=== PATIENT | female | born 1945 | race Caucasian/White ===

== ENCOUNTER 2017-03-22 12:42 | Emergency (ER) | payer MEDICARE ==
--- NOTE | 2017-03-22 14:36 | CT ---
CT OF BRAIN PERFORMED WITHOUT CONTRAST ENHANCEMENT: HISTORY: Head injury. FINDINGS: The ventricular and cisternal system shows age-appropriate change. There are no signs of intracereb ral hemorrhage or extraaxial fluid collections. The mastoid air cells and visualized sinuses are cl ear. IMPRESSION: No acute intracranial abnormalities. POS: [facility]
--- NOTE | 2017-03-22 15:18 | CT ---
CERVICAL SPINE CT WITHOUT IV CONTRAST: HISTORY: A 71-year-old female with neck pain following a fall. FINDINGS: Disk osteophytosis changes are noted at C5-C6 and at C6-C7. There is mild lateral recess and forami nal stenosis, particular at C6-C7 and less so on the right side at C5-C6. No evidence for acute fra cture or facet dislocation. IMPRESSION: Cervical spondylosis with some mild to moderate canal, lateral recess, and foraminal stenosis at C5- C6 and C6-C7, worse at C6-C7. POS: [facility]
--- NOTE | 2017-03-22 15:19 | RAD ---
RIGHT SHOULDER THREE VIEWS: HISTORY: Fall. Right shoulder pain. FINDINGS/IMPRESSION: No acute fracture or dislocation is identified. POS: [facility]
--- NOTE | 2017-03-22 15:21 | RAD ---
PORTABLE CHEST ONE VIEW 03/22/2017 at 1:52 p.m.: HISTORY: Injury. Fall. Shoulder pain. Neck pain. Back pain. FINDINGS: Comparison is made with the exam of 07/08/2012. The heart size is normal. The lungs are expanded without focal areas of consolidation, pneumothorax , or pleural effusions. IMPRESSION: No radiographic evidence of acute cardiopulmonary process. POS: [facility]
--- NOTE | 2017-03-22 15:25 | RAD ---
AP PELVIS: HISTORY: Fall. Right hip pain. FINDINGS/IMPRESSION: No definite fracture or dislocation is identified. POS: [facility]
--- NOTE | 2017-03-22 15:27 | RAD ---
RIGHT HIP TWO VIEWS: HISTORY: Fall, right hip pain. FINDINGS/IMPRESSION: No fracture or dislocation is seen. If there is high suspicion for a fracture, further evaluation with CT scan or MRI should be performe d. POS: [facility]
[2017-03-22] MEDS ORDERED: Ketorolac Tromethamine 60 MG/2 ML VIAL ONE (15:39)
== END 2017-03-22 16:13 | disposition home or self-care (01) ==
LOC: ERS 12:42
DX: S70.01XA Contusion of right hip, initial encounter (principal); S40.011A Contusion of right shoulder, initial encounter; E78.5 Hyperlipidemia, unspecified; W01.190A Fall on same level from slipping, tripping and stumbling with subsequent striking against furniture, initial encounter; Y92.512 Supermarket, store or market as the place of occurrence of the external cause
CPT/HCPCS: 70450; 71010; 72125; 72170; 96372; J1885

== ENCOUNTER 2018-09-05 10:15 | Outpatient (CLI) | payer MEDICARE ==
--- NOTE | 2018-09-05 10:51 | MMO ---
Bilateral MAMMO Bilat Screen [facility]. CLINICAL HISTORY: Patient is 73 years old and is seen for screening. The patient has no family history of breast cancer. The patient has no personal history of cancer. The patient has a history of left Excisional Biopsy in 1995 - Benign and left Excisional Biopsy in August 2001 - Benign. VIEWS: The views performed were: bilateral craniocaudal with tomosynthesis and bilateral mediolateral oblique with tomosynthesis. FILMS COMPARED: The present examination has been compared to prior imaging studies performed at [facility] on 07/28/2000, 08/09/2001, 08/16/2002, 09/09/2003, 09/10/2004, 09/23/2005, 12/20/2006, 02/08/2008, 07/08/2011 and 03/28/2014. MAMMOGRAM FINDINGS: There are scattered fibroglandular densities. There are benign appearing calcifications seen in both breasts. There are also vascular calcifications. There are no suspicious masses, suspicious calcifications, or new areas of architectural distortion. IMPRESSION: THERE IS NO MAMMOGRAPHIC EVIDENCE OF MALIGNANCY. A ROUTINE FOLLOW-UP MAMMOGRAM IN 1 YEAR IS RECOMMENDED. THE RESULTS OF THIS EXAM WERE SENT TO THE PATIENT. ACR BI-RADS Category 2 - Benign finding MAMMOGRAPHY NOTE: 1. A negative mammogram report should not delay a biopsy if a dominant of clinically suspicious mass is present. 2. Approximately 10% to 15% of breast cancers are not detected by mammography. 3. Adenosis and dense breasts may obscure an underlying neoplasm.
== END 2018-09-05 10:16 | disposition home or self-care (01) ==
LOC: BICMAMMO 10:15
PROVIDERS: ATTEND Family Medicine
DX: Z12.31 Encounter for screening mammogram for malignant neoplasm of breast (principal)
CPT/HCPCS: 77063; 77067

== ENCOUNTER 2019-08-02 10:17 | Outpatient (CLI) | payer MEDICARE ==
--- NOTE | 2019-08-02 11:08 | RAD ---
RIGHT SHOULDER 2 VIEWS: HISTORY: Right shoulder pain and neck pain. FINDINGS/IMPRESSION: There are mild degenerative changes in the acromioclavicular joint. No fracture, dislocation, or bon y destruction is seen. POS: [facility]
--- NOTE | 2019-08-02 11:13 | RAD ---
CERVICAL SPINE 3 VIEWS: HISTORY: Neck pain radiating to right shoulder. FINDINGS: Multilevel degenerative changes are present. There is loss of cervical lordosis with straightening o f the cervical spine. There is minimal anterolisthesis of C4 over C5. No compression fracture or jeanette ny destruction is seen. IMPRESSION: Cervical spondylosis. POS: [facility]
== END 2019-08-02 10:18 | disposition home or self-care (01) ==
LOC: BICRAD 10:17
PROVIDERS: ATTEND Family Medicine
DX: M54.2 Cervicalgia (principal); G89.29 Other chronic pain; M19.011 Primary osteoarthritis, right shoulder; M47.812 Spondylosis without myelopathy or radiculopathy, cervical region
CPT/HCPCS: 36415; 72040; 80053; 80061; 85025

== ENCOUNTER 2020-07-03 10:39 | Outpatient (CLI) | payer MEDICARE ==
--- NOTE | 2020-07-03 12:33 | RAD ---
2 VIEW CHEST: Date: 07/03/2020 HISTORY: Follow-up pneumonia. COMPARISON: 06/15/2020. FINDINGS: The patchy infiltrate seen in the left peripheral lung on the prior study is less pronounced today. H azy infiltrate seen in the right mid lung on the prior study is not apparent today. Lungs appear clear today with no definite infiltrate or effusion. Heart and mediastinum unremarkable. IMPRESSION: Improvement in the chest. Evidence of resolution of the previously noted infiltrates by plain film. POS: [facility]
== END 2020-07-03 10:40 | disposition home or self-care (01) ==
LOC: BICRAD 10:39
PROVIDERS: ATTEND Family Medicine
DX: J18.9 Pneumonia, unspecified organism (principal); E78.2 Mixed hyperlipidemia; E55.9 Vitamin D deficiency, unspecified; R53.82 Chronic fatigue, unspecified; N30.00 Acute cystitis without hematuria
CPT/HCPCS: 36415; 71046; 80053; 80061; 82306; 84443; 85025; 87086

== ENCOUNTER 2021-07-09 11:03 | Outpatient (CLI) | payer MEDICARE | END 2021-07-09 11:04 | disposition home or self-care (01) | LOC: BICMAMMO 11:03 | PROVIDERS: ATTEND Student in an Organized Health Care Education/Training Program | DX: Z12.31 Encounter for screening mammogram for malignant neoplasm of breast (principal) | CPT/HCPCS: 77063; 77067 ==

== ENCOUNTER 2021-09-27 10:48 | Outpatient (CLI) | payer MEDICARE | END 2021-09-27 10:49 | disposition home or self-care (01) | LOC: BICMAMMO 10:48 | PROVIDERS: ATTEND Student in an Organized Health Care Education/Training Program | DX: Z13.820 Encounter for screening for osteoporosis (principal); M85.89 Other specified disorders of bone density and structure, multiple sites | CPT/HCPCS: 77080 ==

== ENCOUNTER 2022-09-01 15:47 | Emergency (ER) | payer OTHER, MEDICARE | END 2022-09-01 17:57 | disposition home or self-care (01) | LOC: ERS 15:47 | DX: S09.90XA Unspecified injury of head, initial encounter (principal); E78.5 Hyperlipidemia, unspecified; I10 Essential (primary) hypertension; Z79.899 Other long term (current) drug therapy; V89.2XXA Person injured in unspecified motor-vehicle accident, traffic, initial encounter | CPT/HCPCS: 70450 ==

== ENCOUNTER 2023-03-15 10:49 | Outpatient (CLI) | payer MEDICARE | END 2023-03-15 10:50 | disposition home or self-care (01) | LOC: BICRAD 10:49 | PROVIDERS: ATTEND Student in an Organized Health Care Education/Training Program | DX: M25.551 Pain in right hip (principal) | CPT/HCPCS: 72170 ==